=== PATIENT | male | born 1990 | race Caucasian/White ===

== ENCOUNTER 2018-04-01 20:33 | Emergency (ER) ==
[2018-04-01] MEDS ORDERED: LACTATED RINGERS 1,000 ML IV STA ×2 (20:39)
[2018-04-01] MEDS ORDERED: TENIVAC IM ONE (20:41)
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
[2018-04-01 21:05] VITALS: BP 138/96; TEMP 98.1; BMI 25.4
== END 2018-04-01 22:10 | disposition left against medical advice (07) ==
LOC: ED 20:33
DX: S09.90XA Unspecified injury of head, initial encounter (principal); V87.8XXA Person injured in other specified noncollision transport accidents involving motor vehicle (traffic), initial encounter
CPT/HCPCS: 90471; 90714; 96360; 99283